=== PATIENT | female | born 1935 | race Caucasian/White ===

== ENCOUNTER 2023-08-21 12:54 | Inpatient (IN) | payer MEDICARE, BC, OTHER ==
[~2023-08-21] VITALS: Ht 162.6 cm; Wt 65.0 kg
[2023-08-21 13:49] LABS: BASOPHILS # (AUTO) 0.1 X10'3 (0-0.2); BASOPHILS % (AUTO) 0.6 % (0-1); EOSINOPHILS % (AUTO) 0.4 % (0-6); HEMATOCRIT 40.9 % (35.0-45.0); HEMOGLOBIN 13.5 g/dl (12.0-16.0); LYMPHOCYTES # (AUTO) 1.9 X10'3 (1.1-4.8); LYMPHOCYTES % (AUTO) 18.9 % (21-51); MEAN CORPUSCULAR HEMOGLOBIN 29.5 PG (27.0-31.0); MEAN CORPUSCULAR HGB CONC 33.1 g/dL (33.0-36.5); MEAN CORPUSCULAR VOLUME 89.3 FL (78-98); MEAN PLATELET VOLUME 7.3 FL (7.4-10.4); MONOCYTES # (AUTO) 0.9 X10'3 (0-0.9); MONOCYTES % (AUTO) 8.4 % (2-12); NEUTROPHILS # (AUTO) 7.3 X10'3 (1.8-7.7); NEUTROPHILS % (AUTO) 71.7 % (42-75); PLATELET COUNT 323 X10'3 (140-440); RED BLOOD COUNT 4.58 X10'6 (4.20-5.60); RED CELL DISTRIBUTION WIDTH 14.4 % (11.5-14.5); WHITE BLOOD COUNT 10.2 X10'3 (4.5-11.0)
[2023-08-21 14:13] LABS: ALBUMIN 3.1 G/DL (3.4-5.0); ANION GAP 9 (8-16); BLOOD UREA NITROGEN 34 MG/DL (7-18); CALCIUM 8.8 MG/DL (8.5-10.1); CHLORIDE 105 MMOL/L (99-107); CREATININE 1.62 MG/DL (0.40-0.90); GLUCOSE 158 MG/DL (70-104); POTASSIUM 4.3 MMOL/L (3.5-5.1); PRO BRAIN NATRIURETIC PEPTIDE 658 PG/ML (0-450); SODIUM 140 MMOL/L (135-145); TOTAL CARBON DIOXIDE 26.4 MMOL/L (24-32); eCRCL 23 ML/MIN; eGFR 30 ML/MIN
[2023-08-21] MEDS: clopidogrel 75mg tablet PO ONE (15:46)
[2023-08-21] MEDS ORDERED: magnesium 2GM in 50ml NS 50 ML IV PRN (17:20)
[2023-08-21] MEDS ORDERED: glucagon, human recombinant 1mg kit SUBCUT PRN (17:20)
[2023-08-21] MEDS ORDERED: magnesium Cl slow-release 64mg tablet PO PRN (17:20)
[2023-08-21] MEDS ORDERED: magnesium 4gm in 100ml NS 100 ML IV PRN (17:20)
[2023-08-21] MEDS ORDERED: metoprolol tartrate 1mg/ml inj IV PRN (17:20)
[2023-08-21] MEDS ORDERED: mag hydrox/Alum hydrox/simeth 30ml oral suspension PO PRN (17:20)
[2023-08-21] MEDS ORDERED: INSULIN LISPRO 100 UNIT/ML INSULN.PEN MULTI-DOSE SQ PRN (17:20)
[2023-08-21] MEDS ORDERED: DEXTROSE 15 GM of carb/4 tabs (each vial/BOTTLE has 4 tablets) PO PRN ×2 (17:20)
[2023-08-21] MEDS ORDERED: insulin regular, human U-100 3ml vial - multi-dose SQ SCH (17:20)
[2023-08-21] MEDS ORDERED: potassium Cl 40MEQ/1/2NS 520ml 520 ML IV PRN (17:20)
[2023-08-21] MEDS ORDERED: magnesium hydroxide 30ml (MOM) UD suspension PO PRN (17:20)
[2023-08-21] MEDS ORDERED: potassium Cl 20 mEq SR tablet PO PRN ×2 (17:20)
[2023-08-21] MEDS ORDERED: dextrose 50%-water 50ml dispensing syringe IV PRN ×2 (17:20)
[2023-08-21] MEDS ORDERED: ondansetron/PF 4mg/2ml inj IV PRN (17:20)
[2023-08-21 17:40] LABS: BASOPHILS % (AUTO) 0.4 % (0-1); EOSINOPHILS # (AUTO) 0.1 X10'3 (0-0.9); EOSINOPHILS % (AUTO) 0.7 % (0-6); HEMATOCRIT 40.5 % (35.0-45.0); HEMOGLOBIN 13.3 g/dl (12.0-16.0); LYMPHOCYTES # (AUTO) 2.2 X10'3 (1.1-4.8); LYMPHOCYTES % (AUTO) 24.5 % (21-51); MEAN CORPUSCULAR HEMOGLOBIN 29.7 PG (27.0-31.0); MEAN CORPUSCULAR HGB CONC 32.9 g/dL (33.0-36.5); MEAN CORPUSCULAR VOLUME 90.2 FL (78-98); MEAN PLATELET VOLUME 7.4 FL (7.4-10.4); MONOCYTES # (AUTO) 0.9 X10'3 (0-0.9); MONOCYTES % (AUTO) 10.2 % (2-12); NEUTROPHILS # (AUTO) 5.9 X10'3 (1.8-7.7); NEUTROPHILS % (AUTO) 64.2 % (42-75); PLATELET COUNT 311 X10'3 (140-440); RED BLOOD COUNT 4.49 X10'6 (4.20-5.60); RED CELL DISTRIBUTION WIDTH 14.6 % (11.5-14.5); WHITE BLOOD COUNT 9.1 X10'3 (4.5-11.0)
[2023-08-21 17:50] LABS: POTASSIUM 3.9 MMOL/L (3.5-5.1)
[2023-08-21 17:52] LABS: APTT 30 SECONDS (22-32); INR 1.1 INR
[2023-08-21 17:59] LABS: HEMOGLOBIN A1C 7.4 % (4.5-6.2)
[2023-08-21] MEDS: heparin 10,000 units/1 ML INJ IV ONE (18:08)
[2023-08-21] MEDS: heparin 25,000 UNIT/250ml bag 250 ML IV PRN (18:17)
[2023-08-21] MEDS: MESSAGE TO PHARMACY PO ONE (18:19)
[2023-08-21 18:35] LABS: BILIRUBIN,URINE NEGATIVE (Neg); CLARITY,URINE CLEAR (Clear); COLOR,URINE STRAW (Yellow); GLUCOSE, URINE NEGATIVE (Neg); KETONES,URINE NEGATIVE (Neg); LEUKOCYTE ESTERASE ,URINE NEGATIVE (Neg); NITRITES, URINE NEGATIVE (Neg); OCCULT BLOOD,URINE NEGATIVE (Neg); PH,URINE 6.5 (4.8-8.0); PROTEIN,URINE NEGATIVE (Neg); UA COLLECTION TYPE CLN CATCH MIDSTREAM; UROBILINOGEN,URINE 0.2 E.U/dL (0.2-1.0)
[2023-08-21] MEDS ORDERED: ACAR50TA4 PO (18:37)
[2023-08-21] MEDS ORDERED: MECL-302 PO (18:56)
[2023-08-21] MEDS ORDERED: INSU100I31 SUBCUT (18:56)
[2023-08-21] MEDS ORDERED: NITR0.4T51 SL (18:56)
[2023-08-21] MEDS ORDERED: DOCU100C40 PO (18:56)
[2023-08-21] MEDS ORDERED: METO1TAB12 PO (18:56)
[2023-08-21] MEDS ORDERED: ASPI-1265 PO (18:56)
[2023-08-21] MEDS ORDERED: CYAN500T71 SL (18:56)
[2023-08-21] MEDS ORDERED: CHOL100046 PO (18:56)
[2023-08-21] MEDS: K and/or MAG REPLACEMENT MC SCH (20:00)
[2023-08-21] MEDS: docusate sod 100mg capsule PO SCH (20:00)
[2023-08-21] MEDS ORDERED: insulin glargine (Lantus) pen - multi-dose SQ PRN (21:00)
[2023-08-21 23:00] VITALS: BP 150/65; PULSE 68; RESP 16; TEMP 97.9; O2SAT 95; O2SAT 96
[2023-08-22] VITALS (16 sets, daily range): BP systolic 104–149; BP diastolic 54–82; PULSE 55–82; RESP 12–20; TEMP 97.1–97.9; O2SAT 93–98
[2023-08-22] MEDS: MESSAGE TO NURSING IV ONE ×3 (05:18→16:04)
[2023-08-22 07:49] LABS: BASOPHILS % (AUTO) 0.5 % (0-1); EOSINOPHILS # (AUTO) 0.2 X10'3 (0-0.9); HEMATOCRIT 41.5 % (35.0-45.0); HEMOGLOBIN 13.6 g/dl (12.0-16.0); LYMPHOCYTES # (AUTO) 2.3 X10'3 (1.1-4.8); LYMPHOCYTES % (AUTO) 27.4 % (21-51); MEAN CORPUSCULAR HEMOGLOBIN 29.2 PG (27.0-31.0); MEAN CORPUSCULAR HGB CONC 32.7 g/dL (33.0-36.5); MEAN CORPUSCULAR VOLUME 89.4 FL (78-98); MEAN PLATELET VOLUME 7.4 FL (7.4-10.4); MONOCYTES # (AUTO) 1.1 X10'3 (0-0.9); MONOCYTES % (AUTO) 12.4 % (2-12); NEUTROPHILS # (AUTO) 4.9 X10'3 (1.8-7.7); NEUTROPHILS % (AUTO) 57.7 % (42-75); PLATELET COUNT 302 X10'3 (140-440); RED BLOOD COUNT 4.65 X10'6 (4.20-5.60); RED CELL DISTRIBUTION WIDTH 14.1 % (11.5-14.5); WHITE BLOOD COUNT 8.5 X10'3 (4.5-11.0)
[2023-08-22] MEDS: atorvastatin 10mg tablet PO SCH (08:00)
[2023-08-22 08:08] LABS: ALANINE AMINOTRANSFERASE 11 U/L (12-78); ALBUMIN 2.8 G/DL (3.4-5.0); ALBUMIN/GLOBULIN RATIO 0.7 (1.1-1.5); ALKALINE PHOSPHATASE 50 IU/L (46-116); ANION GAP 10 (8-16); ASPARTATE AMINO TRANSFERASE 42 U/L (10-37); BILIRUBIN,TOTAL 0.5 MG/DL (0.1-1.0); BLOOD UREA NITROGEN 30 MG/DL (7-18); BUN/CREATININE RATIO 20.5 (10.0-20.0); CALCIUM 8.9 MG/DL (8.5-10.1); CHLORIDE 105 MMOL/L (99-107); CHOL/HDL RATIO 5.7 (0.00-4.99); CHOLESTEROL 226 MG/DL (0-200); CREATININE 1.46 MG/DL (0.40-0.90); GLUCOSE 141 MG/DL (70-104); HDL CHOLESTEROL 40 MG/DL (35-60); LDL CHOLESTEROL 166 MG/DL (50-100); PHOSPHORUS 4.6 MG/DL (2.3-4.5); POTASSIUM 3.9 MMOL/L (3.5-5.1); SODIUM 140 MMOL/L (135-145); TOTAL PROTEIN 7.1 G/DL (6.4-8.2); TRIGLYCERIDES 177 MG/DL (20-135); eCRCL 24 ML/MIN; eGFR 34 ML/MIN
[2023-08-22] MEDS: heparin 10,000 units/1 ML INJ IV PRN (08:45)
[2023-08-22] MEDS: nitroGLYCERIN 0.4mg/hour patch TD SCH (10:20)
[2023-08-22] MEDS: aspirin 81mg, enteric-coated 1 TAB TABLET.DR PO SCH (10:20)
[2023-08-22] MEDS ORDERED: CIME200T12 PO (10:22)
[2023-08-22] MEDS: metoprolol tartrate 25mg tablet PO SCH (10:40)
[2023-08-22] MEDS ORDERED: heparin 1,000unit/ml 10ml vial 10 ML ONE (11:38)
[2023-08-22] MEDS ORDERED: iohexol 350MG/ML 100ml bottle IV ONE ×3 (11:38→13:19)
[2023-08-22] MEDS ORDERED: LIDOcaine 1% 30ml preserv. free vial ONE (11:38)
[2023-08-22] MEDS ORDERED: midazolam 1 mg/ML 2ml injection ONE (12:58)
[2023-08-22] MEDS ORDERED: fentaNYL/PF 50MCG/1 ML 2ML syringe ONE (12:58)
[2023-08-22] MEDS ORDERED: ticagrelor 90mg tablet ONE (13:18)
[2023-08-22] MEDS ORDERED: aspirin 325mg tablet ONE (13:18)
[2023-08-22 15:29] LABS: CHOL/HDL RATIO 5.3 (0.00-4.99); CHOLESTEROL 218 MG/DL (0-200); HDL CHOLESTEROL 41 MG/DL (35-60); LDL CHOLESTEROL 156 MG/DL (50-100); TRIGLYCERIDES 116 MG/DL (20-135)
[2023-08-22] MEDS ORDERED: famotidine 20mg tablet PO SCH (20:00)
[2023-08-22] MEDS: ticagrelor 90mg tablet PO SCH (21:48)
[2023-08-23 02:00] VITALS: BP 121/62; PULSE 79; RESP 17; TEMP 97.2; O2SAT 97
[2023-08-23 06:09] LABS: ALANINE AMINOTRANSFERASE 17 U/L (12-78); ALBUMIN 2.7 G/DL (3.4-5.0); ALBUMIN/GLOBULIN RATIO 0.7 (1.1-1.5); ALKALINE PHOSPHATASE 41 IU/L (46-116); ANION GAP 11 (8-16); ASPARTATE AMINO TRANSFERASE 33 U/L (10-37); BILIRUBIN,TOTAL 0.6 MG/DL (0.1-1.0); BLOOD UREA NITROGEN 30 MG/DL (7-18); BUN/CREATININE RATIO 21.4 (10.0-20.0); CALCIUM 8.8 MG/DL (8.5-10.1); CHLORIDE 105 MMOL/L (99-107); GLUCOSE 150 MG/DL (70-104); PHOSPHORUS 4.7 MG/DL (2.3-4.5); POTASSIUM 4.1 MMOL/L (3.5-5.1); SODIUM 141 MMOL/L (135-145); TOTAL CARBON DIOXIDE 24.7 MMOL/L (24-32); TOTAL PROTEIN 6.6 G/DL (6.4-8.2); eCRCL 25 ML/MIN; eGFR 36 ML/MIN
[2023-08-23 06:21] LABS: BASOPHILS % (AUTO) 0.3 % (0-1); EOSINOPHILS # (AUTO) 0.1 X10'3 (0-0.9); EOSINOPHILS % (AUTO) 1.2 % (0-6); HEMATOCRIT 38.1 % (35.0-45.0); HEMOGLOBIN 12.6 g/dl (12.0-16.0); LYMPHOCYTES # (AUTO) 1.4 X10'3 (1.1-4.8); LYMPHOCYTES % (AUTO) 15.6 % (21-51); MEAN CORPUSCULAR HEMOGLOBIN 29.5 PG (27.0-31.0); MEAN CORPUSCULAR VOLUME 89.4 FL (78-98); MEAN PLATELET VOLUME 7.4 FL (7.4-10.4); MONOCYTES # (AUTO) 1.3 X10'3 (0-0.9); MONOCYTES % (AUTO) 14.6 % (2-12); NEUTROPHILS % (AUTO) 68.3 % (42-75); PLATELET COUNT 306 X10'3 (140-440); RED BLOOD COUNT 4.26 X10'6 (4.20-5.60); RED CELL DISTRIBUTION WIDTH 14.5 % (11.5-14.5); WHITE BLOOD COUNT 8.8 X10'3 (4.5-11.0)
[2023-08-23 07:00] VITALS: BP 143/59; PULSE 60; RESP 22; TEMP 97.9; O2SAT 97
[2023-08-23 08:00] VITALS: RESP 20; O2SAT 97
[2023-08-23] MEDS: cyanocobalamin 500mcg tablet PO SCH (08:34)
[2023-08-23] MEDS ORDERED: atorvastatin 20mg tablet PO SCH (08:42)
[2023-08-23 11:30] VITALS: BP 133/56; PULSE 60; RESP 14; TEMP 97.2; O2SAT 98
[2023-08-23] MEDS ORDERED: ATOR20TA66 PO (13:12)
[2023-08-23] MEDS ORDERED: TICA90TA PO (13:12)
[2023-08-24] MEDS ORDERED: famotidine 20mg tablet PO SCH (08:00)
== END 2023-08-23 15:15 | disposition home or self-care (01) | DRG 321 ==
LOC: ER 12:55 → ED HOLD 17:26 → PCU 3S 23:00
PROVIDERS: ADMIT Family Medicine; ATTEND Family Medicine
PROC: 027034Z Dilation of Coronary Artery, One Artery with Drug-eluting Intraluminal Device, Percutaneous Approach (ICD-10-PCS; principal; 2023-08-22)
PROC: 4A023N7 Measurement of Cardiac Sampling and Pressure, Left Heart, Percutaneous Approach (ICD-10-PCS; 2023-08-22)
PROC: B2111ZZ Fluoroscopy of Multiple Coronary Arteries using Low Osmolar Contrast (ICD-10-PCS; 2023-08-22)
PROC: B2131ZZ Fluoroscopy of Multiple Coronary Artery Bypass Grafts using Low Osmolar Contrast (ICD-10-PCS; 2023-08-22)
PROC: B2181ZZ Fluoroscopy of Left Internal Mammary Bypass Graft using Low Osmolar Contrast (ICD-10-PCS; 2023-08-22)
PROC: B41F1ZZ Fluoroscopy of Right Lower Extremity Arteries using Low Osmolar Contrast (ICD-10-PCS; 2023-08-22)
DX: T82.857A Stenosis of other cardiac prosthetic devices, implants and grafts, initial encounter (principal); I21.4 Non-ST elevation (NSTEMI) myocardial infarction; I25.10 Atherosclerotic heart disease of native coronary artery without angina pectoris; E11.22 Type 2 diabetes mellitus with diabetic chronic kidney disease; E78.00 Pure hypercholesterolemia, unspecified; N18.9 Chronic kidney disease, unspecified; Y83.2 Surgical operation with anastomosis, bypass or graft as the cause of abnormal reaction of the patient, or of later complication, without mention of misadventure at the time of the procedure; Z79.4 Long term (current) use of insulin; Z88.6 Allergy status to analgesic agent; Z88.5 Allergy status to narcotic agent; Z88.2 Allergy status to sulfonamides; Y92.89 Other specified places as the place of occurrence of the external cause
CPT/HCPCS: 93306; 93459; 99285; C9604; 36415; 71045; 80048; 80053; 80061; 81003; 82948; 83036; 83735; 83880; 84100; 84132; 84484; 85025; 85610; 85730; 87081; 93005; 99152; 99153; A4620; A6258; C1725; C1751; C1760; C1769; C1874; G0378; J1644; J1815; J2250; J3010; J3490; J7030; Q9967